=== PATIENT | male | born 1985 | race Caucasian/White ===

== ENCOUNTER → 2019-07-22 | Outpatient (CLI) | payer BC ==
[2019-07-22 12:14] LABS: BLOOD UREA NITROGEN 10 MG/DL (7-18); CREATININE FOR GFR 0.74 MG/DL (0.70-1.30); GLOMERULAR FILTRATION RATE > 60.0 (>60)
== END ==
LOC: M PLALAB 09:23
PROVIDERS: ATTEND Internal Medicine Pulmonary Disease
DX: R94.2 Abnormal results of pulmonary function studies (principal)

== ENCOUNTER → 2019-08-19 | Outpatient (CLI) | payer BC ==
--- NOTE | 2019-08-19 16:22 | REP ---
Clinical: Hypoxemia . Technique: Axial contrast enhanced images from the thoracic inlet to the upper abdomen using 75 ml Isovue 370 intravenous contrast material with multiplanar re-formations. Findings: Satisfactory enhancement of the pulmonary vasculature is achieved and no filling defects are identified to suggest pulmonary embolus. Further evaluation of the mediastinum demonstrates normal thoracic aorta, heart and pericardium. The bilateral lung baird are well aerated and clear without consolidation pleural effusion or pneumothorax. Tracheobronchial tree is patent. No nodule or mass lesion is identified. No adenopathy noted. Surrounding musculoskeletal structures intact Impression: No evidence for pulmonary embolus. No acute mediastinal or pleural parenchymal process. Electronically Signed by Art Perez MD 08/19/2019 04:13 P
--- NOTE | 2019-08-20 07:20 | ECHO ---
DATE OF PROCEDURE: 08/19/2019 DATE OF : 1985 AGE: 34 REFERRING PHYSICIAN: Dr. Phelps REASON FOR STUDY: Shortness of breath and sleep apnea. 2-D MEASUREMENTS: IVS: 4.0 cm LA: 4.3 cm Aorta: 3.6 cm DOPPLER MEASUREMENTS: Peak velocity across the aortic valve: 0.90 m/s Mitral E: 0.8 Mitral A: 0.6 Ratio: 1.4 2-D COMMENTS; 1. Technically limited study due to poor acoustic window, probably related to lung interference and/or body habitus. 2. Normal left ventricular size with preserved left ventricular wall thickness, but left ventricular systolic function appeared to be depressed, estimated at 45-50%. 3. Mildly enlarged left atrium. The right atrium and the right ventricle were not well visualized, but appeared to be mildly enlarged. 4. The atrial septum appeared to be normal without evidence of defect or shunt. 5. Normal aortic root. 6. A small pericardial effusion was noted, no evidence of cardiac tamponade. 7. Mildly calcified aortic valve with normal leaflet excursion. Mildly calcified mitral annulus with normal anterior mitral leaflet motion. Normal tricuspid valve. The pulmonic valve and proximal pulmonary artery branches were not well visualized. 8. The inferior vena cava was not visualized. DOPPLER: No significant valvular abnormalities detected. Abnormal relaxation pattern was noted across the mitral annulus consistent with features of grade 2 left ventricular diastolic dysfunction, left ventricular end-diastolic pressure might be elevated. IMPRESSIONS: 1. Technically limited study due to poor acoustic window. 2. Probably mildly to moderately depressed global left ventricular systolic dysfunction with global hypokinesis. 3. Aortic valve sclerosis without stenosis or aortic regurgitation. 4. Mildly enlarged left atrium, no significant mitral regurgitation or mitral stenosis detected. 5. A small pericardial effusion was noted, no evidence of cardiac tamponade. 6. There are some features of grade 2 left ventricular diastolic dysfunction. 7. The right heart chambers in limited views appeared to be mildly enlarged. No tricuspid regurgitation detected. The right ventricular free wall might be hypokinetic in limited views.
== END ==
LOC: M CARPUL 15:06
PROVIDERS: ATTEND Internal Medicine Pulmonary Disease
DX: G47.33 Obstructive sleep apnea (adult) (pediatric) (principal); R09.02 Hypoxemia

== ENCOUNTER → 2019-08-27 | Outpatient (CLI) | payer BC ==
[2019-08-27 09:55] LABS: ABG BASE EXCESS -0.1 (-2.0-2.0); ABG HCO3 24.8 MEQ/L (22.0-26.0); ABG O2 SATURATION 93.3 % (95.0-99.0); ABG PARTIAL PRESSURE CO2 41.3 mmHg (35.0-45.0); ABG PARTIAL PRESSURE O2 65.3 mmHg (75.0-100.0); ABG STANDARD HCO3 24.3 MEQ/L (22.0-26.0); ABG pH (ARTERIAL) 7.396 UNITS (7.350-7.450)
--- NOTE | 2019-08-27 10:17 | PFTRPT ---
Site: [facility], [address] [place] [address], [id number] ID: [id number] Name: ELVIRA ANDINO Visit Date: 08/27/2019 Second ID: [id number] Referring Doctor: Geni Phelps MD Reviewing Doctor: Chris Weir MD Pilot Manager: Drake MCNEILL RRT Age: 34 : 1985 Sex: Male Race: Height: 65.00 Inches Weight: 275.00 Lbs BSA: 2.26 Order IDs: [id number] Requested Test(s): <RESP-PFT.PFT B/A> Diagnosis: R09.02 test meet the ATS standards for acceptability and repeatability. Pt was given four puffs of albuterol for postbronchodilator. Review Status: Not Reviewed Pre-Bronch Post-Bronch Pred Actual %Pred Actual %Chng SPIROMETRY FVC (L) 4.61 3.06 66 3.27 6 FEV1 (L) 3.77 2.67 70 2.75 3 FEV1/FVC (%) 81 87 107 84 -3 FEF 25% (L/sec) 8.86 6.43 72 5.86 -8 FEF 50% (L/sec) 6.54 3.81 58 3.04 -20 FEF 75% (L/sec) 2.20 1.55 70 1.34 -13 FEF 25-75% (L/sec) 3.86 3.35 86 2.75 -17 FEF Max (L/sec) 9.17 6.54 71 6.24 -4 FIVC (L) 2.91 2.90 FIF 50% (L/sec) 5.42 2.60 47 2.96 13 FIF Max (L/sec) 3.74 4.14 10 MVV (L/min) 157 96 60 Expiratory Time (sec) 6.32 6.41 1 Back Extrap Vol (L) 0.11 0.14 20 Time To FEFmax (sec) 0.100 0.106 6 LUNG VOLUMES SVC (L) 4.49 3.34 74 IC (L) 3.10 2.37 76 ERV (L) 1.39 0.96 69 TGV (L) 2.80 2.01 71 RV (Pleth) (L) 1.41 1.04 73 TLC (Pleth) (L) 5.90 4.38 74 RV/TLC (Pleth) (%) 24 24 99 DIFFUSION DLCOunc (ml/min/mmHg) 32.46 26.58 81 DLCOcor (ml/min/mmHg) 32.46 24.87 76 DL/VA (ml/min/mmHg/L) 5.50 6.49 117 VA (L) 5.90 3.83 64 BHT (sec) 10.22 IVC (L) 2.73 TLC (SB) (L) 3.98 AIRWAYS RESISTANCE Raw (cmH2O/L/s) 1.45 1.17 80 Gaw (L/s/cmH2O) 1.03 0.86 83 sRaw (cmH2O*s) 4.76 2.71 56 sGaw (1/cmH2O*s) 0.20 0.37 184 BLOOD GASES Hgb (gm/dL) 17.3
== END ==
LOC: M CARPUL 08:59
PROVIDERS: ATTEND Internal Medicine Pulmonary Disease
DX: R09.02 Hypoxemia (principal)

== ENCOUNTER → 2019-10-17 | Outpatient (CLI) | payer BC ==
[~2019-10-17] MED LIST: CYCL-707 PO; GABA-1171 PO; HYDR25TAB PO; LEVOTAB10 PO; LEXA1TAB2 PO; METF500T13 PO; TRAM50TA2 PO
== END ==
LOC: M LABSMTC 09:47
PROVIDERS: ATTEND Anesthesiology
DX: Z01.812 Encounter for preprocedural laboratory examination (principal); Z11.59 Encounter for screening for other viral diseases

== ENCOUNTER 2019-10-20 08:18 | Day surgery (SDC) | payer BC ==
[~2019-10-20] VITALS: Ht 165.1 cm; Wt 124.5 kg
[2019-10-20] MEDS ORDERED: MIDAZOLAM INJ 2MG/2ML VIAL (J2250 PER 1MG) As Ordered ONE ×2 (08:49→08:50)
[2019-10-20] MEDS ORDERED: NS 1,000 ML IV SCH (09:15)
[2019-10-20] MEDS ORDERED: LIDOCAINE VISCOUS 2% SOLN 15ML UDC As Ordered ONE (09:16)
[2019-10-20 09:55] VITALS: BP 127/69
[2019-10-20] MEDS ORDERED: MIDAZOLAM INJ 2MG/2ML VIAL (J2250 PER 1MG) IV PRN (10:15)
[2019-10-20] MEDS ORDERED: MIDAZOLAM INJ 2MG/2ML VIAL (J2250 PER 1MG) IV ONE (10:15)
--- NOTE | 2019-10-20 10:40 | T-ECHO ---
DATE OF STUDY: 10/20/2019 REFERRING PHYSICIAN: Slade Gomez MD INDICATION: Atrial septal defect. PREPROCEDURE DIAGNOSIS: Atrial septal defect. POSTPROCEDURE DIAGNOSES: Atrial septal defect. PRINCIPAL FINDINGS: Large secundum atrial septal defect (2.5 cm) with bidirectional shunting. PROCEDURE PERFORMED: Transesophageal echocardiogram. PROCEDURE PERFORMED BY: Slade Gomez MD PHYSICAL FITNESS TRAINER: None. INTRAVENOUS (IV) SEDATION: Midazolam 4 mg IV. COMPLICATIONS: None. DESCRIPTION OF PROCEDURE: Procedure description: The patient was given viscous lidocaine to gargle at the start of the procedure. He received a total of 4 mg of midazolam IV for sedation. The procedure was tolerated well without any immediate complications. Rhythm was sinus. Esophageal intubation was accomplished without difficulty using a [employer] 2-dimensional transesophageal echocardiogram probe. The left ventricle appeared normal in size and systolic function. Left ventricle ejection fraction was 70% by visual estimate. Right ventricle appeared to be at least mildly dilated and had normal right ventricle (RV) systolic function. The left atrium was probably mild dilated. Probably moderate dilatation of the right atrium. A secundum septal defect was present, which measured maximum diameter of 2.5 cm. Bidirectional shunting was present across the atrial septal defect with most of the flow from left atrium to right atrium. With Valsalva maneuver release with saline contrast with 1 mL of blood mixed in, showed intermittent shunting of blood from right atrium to left atrium. Tricuspid leaflets were structurally normal. Mild to moderate tricuspid regurgitation. Pulmonic valve was normal. Probably mild pulmonic regurgitation. Mitral leaflets were structurally normal. Mild mitral regurgitation. Aortic valve was three-cuspid and was normal without any aortic regurgitation. No masses or thrombi were seen with atrial or other appendages. Pulmonary vein flow by pulse wave Doppler in the left upper pulmonary vein was normal. No pericardial effusion. Distal aorta and descending thoracic aorta appeared normal. Transgastric views were technically difficult. CONCLUSIONS: 1. Large (2.5 cm) secundum atrial septal defect with bidirectional shunting. Most of the shunting was occurring from left atrium to right atrium as observed by color flow Doppler. Demonstration of shunting from right atrium to left atrium was demonstrated by the bubble study. 2. Probably mild left atrial dilatation. Probably moderate right atrial dilatation. Probably mild right ventricle dilatation. Normal right ventricle systolic function. 3. Normal left ventricle size and systolic function. [facility]
== END 2019-10-20 10:15 | disposition home or self-care (01) ==
LOC: M OPP 08:18
PROVIDERS: ATTEND Internal Medicine Cardiovascular Disease
DX: Q21.1 Atrial septal defect (principal); Z79.84 Long term (current) use of oral hypoglycemic drugs; Z79.891 Long term (current) use of opiate analgesic; Z79.899 Other long term (current) drug therapy
CPT/HCPCS: 93312; 93320; 93325; J2250

== ENCOUNTER → 2020-01-08 | Outpatient (CLI) | payer BC ==
--- NOTE | 2020-02-08 07:26 | SLEEPCENT ---
DATE: 01/08/2020 ORDERED BY: Dr. Cota Nocturnal polysomnography was performed for the titration of pressure therapy in this patient with obstructive sleep apnea syndrome. For testing, patient was fit with a ResMed AirFit F30 full-face mask of medium size was used. There was 9 cm of water pressure initially applied to the circuit, and the lights were extinguished. There was 8 hours and 15 minutes of data reviewed. There was 433 minutes of sleep identified. Sleep latency was normal at 7.5 minutes. REM sleep was delayed at 270 minutes. Sleep architecture improved late in the study on optimal pressure therapy. There were two REM cycles appreciated. Overall sleep efficiency was 89.1%. The patient's electrocardiogram showed a sinus rhythm with an average heart rate of 71 beats per minute. EEG showed normal waveforms for wake and sleep. Respiratory events were fully palliated with CPAP at a pressure of 11. There was some scattered limb activity, and remaining measures of sleep physiology were normal. IMPRESSION: Obstructive sleep apnea syndrome (G47.33). RECOMMENDATION: Nightly use of pressure therapy, 11 cm of water. MTDD
== END ==
LOC: M SLEEP 20:00
PROVIDERS: ATTEND Internal Medicine Pulmonary Disease
DX: G47.33 Obstructive sleep apnea (adult) (pediatric) (principal)